=== PATIENT | female | born 1960 | race Caucasian/White ===

== ENCOUNTER 2024-10-10 09:45 | Emergency (ER) | payer OTHER ==
[2024-10-10] MEDS: Diphtheria,Pertussis(Acell),Tetanus Vaccine 0.5 ML Syringe IM ONE (10:17)
[2024-10-10] MEDS: Lidocaine 1% 5 ML VIAL INJECT ONE (10:26)
[2024-10-10] MEDS: Bacitracin Oint 1 GM U/D Packet TOP ONE (10:27)
== END 2024-10-10 11:44 | disposition home or self-care (01) ==
LOC: LL.ED 09:45
DX: S61.210A Laceration without foreign body of right index finger without damage to nail, initial encounter (principal); Z23 Encounter for immunization; W26.8XXA Contact with other sharp object(s), not elsewhere classified, initial encounter
CPT/HCPCS: 12001; 90471; 90715; 99282-25; 99283; J3490